=== PATIENT | female | born 1990 | race Caucasian/White ===

== ENCOUNTER → 2016-12-22 | Outpatient (CLI) | payer BC, SELFPAY ==
--- NOTE | 2016-12-23 10:38 | RAD ---
EXAM DESCRIPTION: Wrist,Right 3 Views CLINICAL HISTORY: 26 years, Female, PAIN COMPARISON: None TECHNIQUE: AP/ lateral/ oblique views of the right wrist. FINDINGS: Right wrist study shows no fracture or dislocation. Carpal relationships are well-maintained. The navicular appears intact No significant arthritic changes are observed. IMPRESSION: 1. Normal right wrist. Electronically signed by: Goran Yoo MD 12/23/2016 10:36 AM CDT
== END ==
LOC: RAD 07:57
PROVIDERS: ATTEND Orthopaedic Surgery
DX: M25.531 Pain in right wrist (principal)

== ENCOUNTER 2018-09-14 06:09 | Day surgery (SDC) | payer OTHER ==
--- NOTE | 2018-09-07 11:30 | HP ---
CHIEF COMPLAINT: Right hand numbness. HISTORY OF PRESENT ILLNESS: Soraya is a 27-year-old female with a history of numbness in the right hand. She has had it intermittently for about 2 years. She has been wearing a brace at night which seems to have helped occasionally, but she continues to have pain in the hand and wrist. Because of her ongoing symptoms and duration, she has requested operative intervention. After discussing the risks, benefits and alternatives to carpal tunnel release, she has given informed consent. PAST SURGICAL HISTORY: 1. Knee arthroscopy. 2. Tonsillectomy. 3. Myringotomy tubes. 4. Cranial surgery. MEDICATIONS: None. ALLERGIES: MORPHINE, CAFFEINE. CODE STATUS: Full code. IMMUNIZATIONS: Up to date. FAMILY HISTORY: None pertinent to today's complaint. SOCIAL HISTORY: The patient does not smoke or use any illicit drugs. She does drink on occasion. REVIEW OF SYSTEMS: Negative except as indicated in the History of Present Illness. PHYSICAL EXAMINATION: VITAL SIGNS: Blood pressure 121/77. Pulse 67. Height 5'6". Weight 179 pounds. MENTAL STATUS: The patient is awake, alert, and is able to give a good history and participate in the physical. The patient is oriented to person, place and time. SKIN: Normal tone and turgor. MUSCULOSKELETAL: She has positive carpal compression test and positive Tinel's. 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 She has some very minor thenar atrophy relative to the contralateral side. She has full abduction strength. She maintains full range of motion in all digits. The hand is warm and well perfused. ASSESSMENT: 1. Carpal tunnel syndrome. PLAN: At this point, because of her failure of conservative measures and ongoing symptoms, she has requested operative intervention. We have discussed the risks, benefits, and alternatives to carpal tunnel release and the patient has given informed consent. #[id number] MTDD
[~2018-09-14 06:09] MED LIST: LACTATED RINGERS 1,000 ML ONE; SODIUM CHL 0.9% 100ML MINI-BAG 100 ML IVPB ONE; ceFAZolin SODIUM 1 GM VIAL ONE
[2018-09-14] MEDS ORDERED: BUPIVACAINE 0.25% INJ 30 ML VIAL INJ ONE (06:37)
[2018-09-14] MEDS ORDERED: LIDOCAINE 1% 10 ML VIAL INJ ONE (06:37)
[2018-09-14] MEDS ORDERED: PROPOFOL 200 MG/20 ML VIAL IV ONE (07:00)
[2018-09-14] MEDS: VANCOMYCIN HCL INJ 1,000 MG VIAL IVPB ONE ×2 (07:24→07:26)
[2018-09-14] MEDS: ceFAZolin SODIUM 1 GM VIAL ONE ×2 (07:24→07:26)
[2018-09-14 08:30] VITALS: BP 95/61; TEMP 97.5; O2SAT 93
--- NOTE | 2018-09-14 09:50 | OP ---
DATE OF PROCEDURE: 09/14/18 PREOPERATIVE DIAGNOSIS: 1. Carpal tunnel syndrome. POSTOPERATIVE DIAGNOSIS: 1. Carpal tunnel syndrome. PROCEDURE: 1. Carpal tunnel release. SURGEON: Carlton Butler MD. DIRECTOR OF LABOR RELATIONS: Tom Mcfarlane CST, SA-C. ANESTHESIA: Local with sedation. COMPLICATIONS: None. FINDINGS: 1. Thickened the transverse carpal ligament. 2. Narrowing of the median nerve across the carpal tunnel. INDICATION: Soraya has a long history of symptoms that have been somewhat intermittent, but now have become disruptive. Because of her ongoing symptoms, she has requested operative intervention. After discussing the risks, benefits and alternatives to that, the patient has given informed consent for carpal tunnel release. PROCEDURE: The patient was brought to the Operating Room and placed in the supine position. Sedation was administered and local anesthetic was injected into the operative area under sterile conditions. After the injection of anesthetic, the arm was sterilely prepped and draped. A longitudinal incision was made directly overlying the transverse carpal ligament and blunt dissection was carried down to the ligament. The transverse carpal ligament was sharply transected along its length and a [place] elevator was used to ensure complete release of the ligament. Once release had been confirmed, the wound was thoroughly irrigated and the wound was closed with Nylon suture. A sterile dressing was placed and the patient was taken to the Day Surgery Unit. POSTOPERATIVE PLAN: The patient has been encouraged to do range of motion of the digits and will followup with us in one week. I have given instructions to both her and her mother, who is a nurse, on appropriate care over the course of the next week. #[id number] MTDD
== END 2018-09-14 08:25 | disposition home or self-care (01) ==
LOC: AMB 06:09
PROVIDERS: ATTEND Orthopaedic Surgery
DX: G56.01 Carpal tunnel syndrome, right upper limb (principal); Z88.5 Allergy status to narcotic agent; Z91.048 Other nonmedicinal substance allergy status
CPT/HCPCS: 01810; 64721; 80307; 81025; 87070; J0690; J3370; J3490; J7050; J7120